=== PATIENT | male | born 1935 | race Caucasian/White ===

== ENCOUNTER 2017-05-31 16:04 | Inpatient (IN) | payer OTHER, MEDICARE ==
[~2017-05-31] VITALS: Ht 177.8 cm; Wt 65.3 kg
[~2017-05-31 16:04] MED LIST: AMPYRA10 M1 PO; ASPIRIN81 M4 PO; BACLOFEN10 M1 PO; BIOTIN2500 MCG PO; CELLCEPT200 MG/1 M PEG; CELLCEPT500 M2 PO; CIPRO500 M1 PO; DESMOPRESSIN A0.2 M1 PO; FLOMAX0.4 M1 PO; FLORASTOR250 M1 PO; FLUDROCORTISON0.1 M1 PO; MIDODRINE HCL2.5 M1 PO; NITROFURANTOIN100 M6 PO; NORTHERA100 M1 PO; PRAVASTATIN SOD10 M2 PO; VITAMIN B-121000 MC3 PO; VITAMIN D1000 UNIT PO
--- NOTE | 2017-05-31 16:43 | ED GI/GU/ABDOMINAL COMPLAINT ---
History of Present Illness General Chief Complaint: General Adult Stated Complaint: SIB MD PHILLIPS FOR ADMISSION ?INFECTION Source: patient, family Exam Limitations: no limitations Vital Signs & Intake/Output Vital Signs & Intake/Output Vital Signs Date Time Temp Pulse Resp B/P B/P Pulse O2 O2 Flow FiO2 Mean Ox Delivery Rate 05/31 1636 91 112/68 98 Room Air 05/31 1611 72/50 05/31 1608 97.4 73 15 63/33 96 Room Air Room Air Allergies Coded Allergies: No Known Allergies (05/31/17) Triage Note: PT SENT TO ED BY DR. WALTERS FOR UTI. PT HAS HAD INCREASED URINE FREQUENCY, +PSEUDOMONAS IN URINE WHEN TESTED THROUGH DR. WALTERS, DENIES ABD PAIN. +BURNING WITH URINATION. CURRENTLY ON CIPRO. Triage Nurses Notes Reviewed? yes Onset: Abrupt Duration: day(s): Timing: recent history Radiation: no radiation Activities at Onset: none No Modifying Factors: none HPI: 81-year-old male comes into the emergency room for further evaluation of persistent increased frequency and burning with urination. Patient was seen by his primary care doctor. Patient had a urine sent and a urine culture sent. Patient grew out resistant bacteria to ciprofloxacin and was sent in for IV antibiotics. He denies any fever chills vomiting. Denies any other symptoms associated symptoms. (Kiko Torres) Reconcile Medications Aspirin (Aspirin*) 81 MG TAB.CHEW 1 TAB PO DAILY HEART HEALTH (Reported) Baclofen 10 MG TABLET 1 TAB PO BID MUSCLE SPASMS (Reported) Biotin (Unknown Strength) CAPSULE 1 TAB PO DAILY SUPPLEMENT (Reported) Cholecalciferol (Vitamin D3) (Vitamin D) (Unknown Strength) TABLET 1 TAB PO DAILY SUPPLEMENT (Reported) Cyanocobalamin (Vitamin B-12) 1,000 MCG TABLET 1 TAB PO DAILY SUPPLEMENT ( Reported) Droxidopa (Northera) 100 MG CAPSULE 3 CAP PO TID BP (Reported) Finasteride 5 MG TABLET 1 TAB PO DAILY PROSTATE (Reported) Mycophenolate Mofetil (Cellcept) 200 MG/ML SUSP.RECON 5 ML PEG BID DEVIC'S DISEASE (Reported) Saccharomyces Boulardii (Florastor) 250 MG CAPSULE 1 CAP PO DAILY PROBIOTIC ( Reported) (Anselmo Ervin DO (TBS)) Past History Travel History Traveled to [place] past 21 day No Medical History Any Pertinent Medical History? see below for history Neurological: orthostatic hypotension DEVICS EENT: cataracts Cardiovascular: ORTHOSTATIC HYPOTENSION Respiratory: ASPIRATION PNA Gastrointestinal: peg tube Hepatic: NONE Renal: UTI'S Musculoskeletal: DEVICS DISEASE Psychiatric: NONE Endocrine: NONE Blood Disorders: NONE Cancer(s): SKIN CANCER NURSING SCHEDULER/Reproductive: NONE History of MRSA: No History of VRE: No History of CDIFF: No Influenza Vaccine: 02/19/16 Surgical History Surgical History: STATUS POST PEG CATARACT SX THROAT TUMOR REMOVED 2009 Psychosocial History Who do you live with Spouse Services at Home Nursing, Physical Therapy What is your primary language Persian Tobacco Use: Quit >30 days ago ETOH Use: denies use Illicit Drug Use: denies illicit drug use Family History Hx Contributory? No (Kiko Torres) Review of Systems Review of Systems Constitutional: Reports: no symptoms. EENTM: Reports: no symptoms. Respiratory: Reports: no symptoms. Cardiovascular: Reports: no symptoms. GI: Reports: no symptoms. Genitourinary: Reports: see HPI. Musculoskeletal: Reports: no symptoms. Skin: Reports: no symptoms. Neurological/Psychological: Reports: no symptoms. Hematologic/Endocrine: Reports: no symptoms. Immunologic/Allergic: Reports: no symptoms. All Other Systems: Reviewed and Negative (Kiko Torres) Physical Exam Physical Exam General Appearance: well developed/nourished, alert, awake Head: atraumatic Eyes: Bilateral: normal appearance. Ears, Nose, Throat, Mouth: hearing grossly normal, moist mucous membrane Neck: normal inspection Respiratory: normal breath sounds, no respiratory distress Cardiovascular: regular rate/rhythm Gastrointestinal: soft, non-tender Back: normal inspection Extremities: normal range of motion Neurologic/Psych: awake, alert, oriented x 3, normal gait Skin: intact, normal color Core Measures ACS in differential dx? No Sepsis Present: No Sepsis Focused Exam Completed? No (Kiko Torres) Progress Differential Diagnosis: ureterolithiasis, urinary retention, urethritis, UTI/ pyelo, SEPSIS Plan of Care: Orders Procedure Date/time Status Heart Healthy Diet 06/01 B Active CBC WITHOUT DIFFERENTIAL 06/01 0600 Active BASIC ELECTROLYTES PLUS BUN&CR 06/01 0600 Active LACTIC ACID 05/31 194 Active CULTURE,URINE 05/31 173 Active URINALYSIS 05/31 173 Active Pathway - chart 05/31 1737 Active House Staff 05/31 1737 Active Patient Data 05/31 1737 Active Code Status 05/31 1737 Active Patient Data 05/31 1709 Active ED Holding Orders 05/31 1708 Active Admit to inpatient 05/31 1708 Active Vital Signs 05/31 1708 Active Code Status 05/31 1708 Complete BLOOD CULTURE 05/31 1642 Active LACTIC ACID 05/31 1642 Active COMPREHENSIVE METABOLIC PANEL 05/31 1642 Active CBC WITHOUT DIFFERENTIAL 05/31 1642 Complete EKG 05/31 1642 Active Intake & Output 05/31 1640 Active VTE Mechanical Prophylaxis 05/31 UNK Active Vital Signs 05/31 UNK Active Intake & Output 05/31 UNK Active Current Medications Sig/Arnulfo Start time Last Medication Dose Stop Time Status Admin Enoxaparin Sodium 40 MG DAILY 06/01 1000 UNVr (Lovenox) Acetaminophen 650 MG Q6P PRN 05/31 174 UNVr (Tylenol) Acetaminophen 1,000 MG Q6P PRN 05/31 1745 UNVr (Ofirmev) Morphine Sulfate 2 MG Q4P PRN 05/31 1745 UNVr (Morphine) Laboratory Tests 05/31/17 1625: Sodium Pending, Potassium Pending, Chloride Pending, Carbon Dioxide Pending, Anion Gap Pending, BUN Pending, Creatinine Pending, BUN/Creatinine Ratio Pending , Glucose Pending, Lactic Acid Pending, Calcium Pending, Total Bilirubin Pending , AST Pending, ALT Pending, Alkaline Phosphatase Pending, Total Protein Pending, Albumin Pending, Globulin Pending, Albumin/Globulin Ratio Pending, CBC w Diff NO MAN DIFF REQ, RBC 4.17 L, MCV 92.7, MCH 30.8, RDW 14.5, MPV 7.5, Gran % 74.2, Lymphocytes % 11.0 L, Monocytes % 9.3, Eosinophils % 4.9, Basophils % 0.6, Absolute Granulocytes 6.4, Absolute Lymphocytes 0.9 L, Absolute Monocytes 0.8 H, Absolute Eosinophils 0.4, Absolute Basophils 0.1, PUBS MCHC 33.2 Microbiology 05/31 1737 URINE ROUT: Urine Culture - ORD 05/31 1705 BLOOD: Blood Culture - RECD 05/31 1641 BLOOD: Blood Culture - ORD Initial ED EKG: normal sinus rhythm, rate (96) (Kiko Torres) Departure Departure Disposition: STILL A PATIENT Condition: Stable Clinical Impression Primary Impression: UTI (urinary tract infection) Referrals: Karl Phillips MD (PCP/Family) Departure Forms: Customer Survey General Discharge Information Admission Note Spoke With: Ramonita Hayden MD Documentation of Exam: Documentation of any treatments & extenuating circumstances including Concerns Regarding Discharge (functional status, medication knowledge or non-compliance, living conditions, etc.) that warrant an admission rather than observation: Patient is symptomatic with urinary tract infection. Patient's culture grew out resistant bacteria to oral antibiotics. The only antibiotics that work against this particular bacteria are IV antibiotics. Therefore patient will require IV antibiotics to treat urine infection. Patient is medically not safe for discharge. Patient could potentially become septic if this goes untreated. (Kiko Torres) PA/SLIP COVER ESTIMATOR Co-Sign Statement Statement: ED Attending supervision documentation- [x] I saw and evaluated the patient. I have also reviewed all the pertinent lab results and diagnostic results. I agree with the findings and the plan of care as documented in the PA's/SLIP COVER ESTIMATOR's documentation. [] I have reviewed the ED Record and agree with the PA's/SLIP COVER ESTIMATOR's documentation. [] Additions or exceptions (if any) to the PAs/SLIP COVER ESTIMATOR's note and plan are summarized below: [] (Anselmo Ervin DO ([facility]))
[2017-05-31 16:59] LABS: ABSOLUTE BASOPHIL COUNT 0.1 /CUMM (0.0-0.2); ABSOLUTE EOSINOPHIL COUNT 0.4 /CUMM (0.0-0.7); ABSOLUTE GRANULOCYTE CT 6.4 /CUMM (1.4-6.5); ABSOLUTE LYMPH COUNT 0.9 /CUMM (1.2-3.4); ABSOLUTE MONOCYTE COUNT 0.8 /CUMM (0.10-0.60); BASOPHIL % 0.6 % (0.0-2.0); EOSINOPHIL % 4.9 % (0-5); GRANULOCYTE % 74.2 % (42.2-75.2); HEMATOCRIT 38.7 % (42-52); MEAN CORPUSCULAR HGB 30.8 PG (27.0-31.0); MEAN CORPUSCULAR HGB CONC 33.2 G/DL (33.0-37.0); MEAN CORPUSCULAR VOLUME 92.7 FL (80.0-94.0); MEAN PLATELET VOLUME 7.5 FL (7.4-10.4); PLATELET COUNT 435 /CUMM (130-400); RBC DISTRIBUTION WIDTH 14.5 % (11.5-14.5); RED BLOOD CELL CT 4.17 /CUMM (4.70-6.10); WHITE BLOOD CELL COUNT 8.6 /CUMM (4.8-10.8)
[2017-05-31] MEDS ORDERED: FINASTERIDE5 M1 PO (17:18)
--- NOTE | 2017-05-31 17:21 | History & Physical ---
Jacky Waddell 05/31/17 8710: General Information and HPI MD Statement: I have seen and personally examined ELIAS DE LUNA and documented this H&P. The patient is a 81 year old M who presented with a patient stated chief complaint of frequency of urination with burning micturition. []. 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 Patient reported that he was in his usual state of health 2 weeks back when he had nasal congestion and runny nose with dry cough. He went to primary care physician's office and he gave him symptomatic treatment for the common cold. Later on patient developed urinary frequency and burning sensation during urination. His primary care physician orders urine culture and prescribed him MicroBid that he took for 4 days but symptoms didn't relieve. Later on his primary care physician prescribed him ciprofloxacin that he took for 2 days but he still has burning sensation and frequency of urination and his urine culture came back positive with pseudomonas that's why his primary care physician sent him to ED for IV antibiotics to cover UTI. Patient denied any chest pain, short of breath, nausea, vomiting, chills, fever, palpitations, lightheadedness, abdominal pain, hematuria and diarrhea. Patient was admitted last time in February 2017 for a UTI at that time he was growing Pseudomonas in urine. He was treated at that time with IV ceftriaxone and switched to ciprofloxacin on discharge. Patient's blood pressure remains chronically on lower side and he is taking midodrine. ED course: Vitals: Temperature 97.4, pulse 73, respiratory rate 15, blood pressure 63/33, 72/50, 112/68, oxygen saturation 96% room air Labs: Duragesic count 8.6, hemoglobin 12.8, hematocrit 38.7, platelet count 435, sodium 139, potassium 4.5, BUN 17, creatinine 1.0, BUN/creatinine ratio 17.0, glucose 112, lactic acid 1.3, calcium 8.5, AST 21, ALT 33, albumin 3.5 Allergies/Medications Allergies: Coded Allergies: No Known Allergies (05/31/17) Past History Travel History Traveled to [place] past 21 day No Medical History Neurological: orthostatic hypotension DEVICS EENT: cataracts Cardiovascular: ORTHOSTATIC HYPOTENSION Respiratory: ASPIRATION PNA Gastrointestinal: peg tube Hepatic: NONE Renal: UTI'S Musculoskeletal: DEVICS DISEASE Psychiatric: NONE Endocrine: NONE Blood Disorders: NONE Cancer(s): SKIN CANCER SENIOR BI ARCHITECT/Reproductive: NONE History of MRSA: No History of VRE: No History of CDIFF: No Influenza Vaccine: 02/19/16 Surgical History Surgical History: STATUS POST PEG CATARACT SX THROAT TUMOR REMOVED 2010 Past Family/Social History Psychosocial History Services at Home: Nursing, Physical Therapy ETOH Use: denies use Illicit Drug Use: denies illicit drug use Review of Systems Review of Systems Constitutional: Reports: no symptoms. EENTM: Reports: no symptoms. Cardiovascular: Reports: no symptoms. Respiratory: Reports: no symptoms. GI: Reports: no symptoms. Genitourinary: Reports: frequency, pain. Musculoskeletal: Reports: no symptoms. Neurological/Psychological: Reports: no symptoms. Exam & Diagnostic Data Last 24 Hrs of Vital Signs/I&O Vital Signs Date Time Temp Pulse Resp B/P B/P Pulse O2 O2 Flow FiO2 Mean Ox Delivery Rate 05/31 1841 97.6 106 20 116/50 95 Room Air 05/31 1636 91 112/68 98 Room Air 05/31 1611 72/50 05/31 1608 97.4 73 15 63/33 96 Room Air Room Air Physical Exam General Appearance Alert, Oriented X3, Cooperative, No Acute Distress Skin Temp/Moisture Exam: Warm/Dry Sepsis Skin Exam (color): Normal for Ethnicity HEENT Atraumatic, PERRLA, EOMI Neck Supple Cardiovascular Normal S1, Normal S2 Lungs Clear to Auscultation Abdomen Soft, No Tenderness Neurological Normal Speech, Strength at 5/5 X4 Ext, Normal Tone, Sensation Intact Extremities No Edema Last 24 Hrs of Labs/Fernando: Laboratory Tests 05/31/17 1625: Anion Gap 13, Estimated GFR > 60, BUN/Creatinine Ratio 17.0, Glucose 112 H, Lactic Acid 1.3, Calcium 8.5, Total Bilirubin 0.3, AST 21, ALT 33, Alkaline Phosphatase 70, Total Protein 6.4, Albumin 3.5, Globulin 2.9, Albumin/Globulin Ratio 1.2, CBC w Diff NO MAN DIFF REQ, RBC 4.17 L, MCV 92.7, MCH 30.8, RDW 14.5 , MPV 7.5, Gran % 74.2, Lymphocytes % 11.0 L, Monocytes % 9.3, Eosinophils % 4.9, Basophils % 0.6, Absolute Granulocytes 6.4, Absolute Lymphocytes 0.9 L, Absolute Monocytes 0.8 H, Absolute Eosinophils 0.4, Absolute Basophils 0.1, PUBS MCHC 33.2 Microbiology 05/31 1738 URINE ROUT: Urine Culture - COLB 05/31 171 BLOOD: Blood Culture - RECD 05/31 170 BLOOD: Blood Culture - RECD Assessment/Plan Assessment: 81 YO F with PMH of Devic's disease, aspiration pneumonia, orthostatic hypotension, recurrent UTI, 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 We will admit the patient on general medicine floor to give him IV antibiotics for UTI. Recurrent UTI: -Patient was admitted last time in February 2017 when he was growing Pseudomonas in urine and was treated with IV ceftriaxone and was discharged on ciprofloxacin. -Patient again came in with UTI and he is growing Pseudomonas and urine and he took outpatient antibiotic treatment. -IV ceftaz -We'll follow the urine and blood cultures. -We will follow CBCs for WBC count. -We will check his HbA1c level. 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 -We will continue droxidopa. Chronically low blood pressure: -We will continue his midodrine. -We will watch for his blood pressure. DVT prophylaxis: Mechanical and Lovenox CODE STATUS: Full code As Ranked By This Provider Problem List: 1. UTI (urinary tract infection) Core Measures/Misc (02/04) Acute Coronary Syndrome ACS Diagnosis: No Congestive Heart Failure Congestive Heart Failure Diagnosis No Cerebrovascular Accident CVA/TIA Diagnosis: No VTE (View Protocol) VTE Risk Factors Age>40 No Mechanical VTE Prophylaxis d/t N/A MechProphylax Ordered No VTE Pharm Prophylaxis d/t NA PharmProphylax ordered Sepsis (View protocol) Sepsis Present: No Myke HOLLINGSWORTH,Cornelius 05/31/17 1291: Resident Review Statement Resident Statement: examined this patient, discussed with commercial intern, agreed with commercial intern Other Findings: This is a 81 year old male with PMH of Devics disease, sq. cancer of neck, PEG tube placement for frequent aspiration, orthostatic hypotension, UTIs who was sent in by Dr. Bell for UTI. Pt states that he was having frequency and burning upon urination for about 1.5-2wks. Prior to UTI symptoms he states that he had congested nose, and productive cough. As such, he went to PCP office on Sunday for evaluation of URI symptoms. On evaluation he mentioned his UTI symptoms and PCP ordered a UA/UC on Sunday. Since then he has been taking Macrobid (3-4 days) and Cipro (2 days). Today, PCP called to tell him that sensitivity of pathogen was only to IV abx and go to hospital. He grew out pseudomonas S to Ceftaz and Meropenem. He has had previous admissions to for UTI. He does see a urologist for eval of frequent UTI. Denies any fevers, nausea, vomiting, diarrhea, CP, SOB, abd pain, suprapubic pain, hematuria, hematochezia or melena. He does endorse frequency and burning upon urination. General Appearance Alert, Oriented X3, Cooperative, No Acute Distress HEENT Atraumatic, PERRLA, EOMI Neck Supple Cardiovascular Normal S1, Normal S2, no murmurs or extra heart sounds Lungs CTAB Abdomen Soft, No Tenderness, PEG tube in place. site well healed. Neurological Normal Speech, Strength at 5/5 X4 Ext, Normal Tone, Sensation Intact Extremities No Edema Assessment: his is a 81 year old male with PMH of Devics disease, sq. cancer of neck, throat tumor, PEG tube placement for aspiration, orthostatic hypotension, UTIs who was sent in by Dr. Bell for UTI. Though pt is afebrile without leukocytosis we will treat him as he is symptomatic, already been treated with antibiotics and has previous hx of UTIs. PLAN: UTI: Though pt has BP with 62 systolic on autocuff the manual read is higher. Additionally, pt states he becomes hypotensive without his fludrocortisone and Northera. Do not suspect sepsis 2/2 UTI at this time. * IV ceftaz * UA * UC Devics: Con't routine management * Baclofen, * Droxidopa * Fluodricortisone CAD: * Con't ASA FC Chem ppx Regular diet with thickened liquid Yovanny HOLLINGSWORTH, Sitalaksh 05/31/17 2321: General Information and HPI Allergies/Medications Home Med list Aspirin (Aspirin*) 81 MG TAB.CHEW 1 TAB PO DAILY HEART HEALTH (Reported) Baclofen 10 MG TABLET 1 TAB PO BID MUSCLE SPASMS (Reported) Biotin (Unknown Strength) CAPSULE 1 TAB PO DAILY SUPPLEMENT (Reported) Cholecalciferol (Vitamin D3) (Vitamin D) (Unknown Strength) TABLET 1 TAB PO DAILY SUPPLEMENT (Reported) Cyanocobalamin (Vitamin B-12) 1,000 MCG TABLET 1 TAB PO DAILY SUPPLEMENT ( Reported) Droxidopa (Northera) 100 MG CAPSULE 3 CAP PO TID BP (Reported) Finasteride 5 MG TABLET 1 TAB PO DAILY PROSTATE (Reported) Fludrocortisone Acetate 0.1 MG TABLET 1 TAB PO DAILY adrenal insufficiency ( Reported) Mycophenolate Mofetil (Cellcept) 200 MG/ML SUSP.RECON 5 ML PEG BID DEVIC'S DISEASE (Reported) Saccharomyces Boulardii (Florastor) 250 MG CAPSULE 1 CAP PO DAILY PROBIOTIC ( Reported) Attending MD Review Statement Attending Statement Attending MD Statement: examined this patient, discuss w/resident/PA/INTERNET AND E BUSINESS PROJECT MANAGER, agreed w/resident/PA/INTERNET AND E BUSINESS PROJECT MANAGER, reviewed images, amended to note Attending Assessment/Plan: 81 yo M with h/o CAD s/p stent (1999), paroxysmal Afib not on AC, DEVIC's disease (NMO), immunosuppresed on Cellcept, 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 Bell for management of drug resistant UTI. Patient reports a 2-week h/o urinary frequency, dysuria and intermittent stream. Patient self-medicated with macrobid that he had left over from his previous UTI , however symptoms did not improve. So he saw his PCP last week, who then prescribed him Cipro for UTI. Patient took it for 2 days. Today his urine culture was reported as Pseudomonas but resistant to Cipro, hence PCP asked him to come to ER for IV antibiotics. Patient follows up with Urologist Dr. Dominick Hamilton who patient saw for c/o urgency and was prescribed finasteride which patient has been taking for past 1- 2 months. Patient denies h/o BPH or previous cystoscopy. Patient is scheduled to follow up with Urologist next month. Vitals: initial BP on ER arrival is noted 63/33 (auto-cuff) but repeat on manual was 72/50 --> improved to 112/68, otherwise stable vitals. Labs: no leukocytosis or bandemia, lactic acid 1.3. UA cloudy, nitrite positive, large leukocyte esterase, WBC> 75, many bacteria. Urine culture (May 28): Pseudomonas resistant to Cipro, sensitive to Ceftaz and imipenem. EKG: SR. Assessment and plan: 1. Pseudomonas UTI with resistance to Cipro 2. Failed outpatient therapy 3. 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 Dysphagia on regular diet with thickened liquids, PEG in situ - Admit to general medicine - Panculture - IV Ceftaz 1 gm Q8 - Consider ID consult to help with antibiotic choice upon discharge - Gentle IV hydration - Outpatient Urology follow up (Dr. Hamilton) - Diet regular with thickened liquids - Continue Cellcept via PEG tube BID with 62 oz water (patient is on a liquid formulation at home, our pharmacy carries the tablet formulation). - Continue fludrocortisone and northera, if hypotensive consider stress dose steroids. - Continue finasteride, aspirin and baclofen. DVT ppx Lovenox. Full code.
[2017-05-31 18:41] VITALS: BP 116/50
[2017-05-31 22:24] VITALS: BP 122/50
[2017-06-01] MEDS ORDERED: FLUDROCORTISON0.1 M1 PO (00:43)
--- NOTE | 2017-06-01 04:03 | Admission Certification ---
Admission Certification Certification Statement - As attending physician, I certify that at the time of - admission, based on clinical presentation, severity of - symptoms, need for further diagnostic testing and - therapeutic interventions, and risk of adverse outcomes - without in-hospital treatment, in my clinical assessment, - this patient requires an acute hospital stay for a minimum - of two nights or longer. I have also considered psychsocial - factors such as support system, advanced age, financial - issues, cognitive issues, and failed out-patient treatments, - past re-admission history, safety of patient, and lack of - compliance as applicable. Specific rationale supporting this admission is: Pseudomonas UTI.
[2017-06-01 06:16] VITALS: BP 140/80
--- NOTE | 2017-06-01 06:52 | PN- Housestaff ---
BaironShannon 06/01/17 0651: Subjective Follow-up For: UTI due to Pseudomonas infection. Subjective: No overnight events. Patient remained afebrile overnight. Seen and examined this morning. He denied any chest pain, short of breath, nausea, vomiting, abdominal pain, chills, fever and lightheadedness. He reported that his burning micturition and frequency has improved and he is close to his baseline. Review of Systems Constitutional: Reports: no symptoms. EENTM: Reports: no symptoms. Cardiovascular: Reports: no symptoms. Respiratory: Reports: no symptoms. Gastrointestinal: Reports: no symptoms. Genitourinary: Reports: frequency, pain. Musculoskeletal: Reports: no symptoms. Neurological/Psychological: Reports: no symptoms. Objective Last 24 Hrs of Vital Signs/I&O Vital Signs Date Time Temp Pulse Resp B/P B/P Pulse O2 O2 Flow FiO2 Mean Ox Delivery Rate 06/01 0616 97.5 87 20 140/80 96 Room Air 06/01 0000 Room Air 05/31 2224 97.9 90 20 122/50 95 Room Air 05/31 1841 97.6 106 20 116/50 95 Room Air 05/31 1636 91 112/68 98 Room Air 05/31 1611 72/50 05/31 1608 97.4 73 15 63/33 96 Room Air Room Air Intake & Output 06/01 1600 06/01 0800 06/01 0000 Intake Total 440 0 Output Total 600 350 Balance -160 -350 Intake, IV 200 Intake, Oral 240 0 Output, Urine 600 350 Patient 144 lb Weight Weight Reported by Patient Measurement Method Physical Exam General Appearance: Alert, Oriented X3, Cooperative, No Acute Distress Skin Temp/Moisture Exam: Warm/Dry HEENT: Atraumatic, PERRLA, EOMI Neck: Supple Cardiovascular: Normal S1, Normal S2 Lungs: Clear to Auscultation Abdomen: Soft, No Tenderness Neurological: Normal Speech, Strength at 5/5 X4 Ext, Normal Tone, Sensation Intact Extremities: No Edema Assessment/Plan Assessment: 81 YO F with PMH of Devic's disease, aspiration pneumonia, orthostatic hypotension, recurrent UTI, 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 We will admit the patient on general medicine floor to give him IV antibiotics for UTI. UTI: -Patient was admitted last time in February 2017 when he was growing Pseudomonas in urine and was treated with IV ceftriaxone and was discharged on ciprofloxacin. -Patient again came in with UTI and he is growing Pseudomonas and urine and he took outpatient antibiotic treatment. -IV ceftaz -We'll follow the urine and blood cultures. -We will follow the ID recommendations and maybe we're able to send patient home today after getting PICC line for IV antibiotic. 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 -We will continue droxidopa. Chronically low blood pressure: -We will continue his midodrine. -We will watch for his blood pressure. DVT prophylaxis: Mechanical and Lovenox CODE STATUS: Full code Problem List: 1. 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 Patient reports urinary frequency and some discomfort. He denies systemic symptoms and does not appear septic. AFVSS. WBC 10. Started on Ceftazidime overnight. 1. UTI secondary to resistent Pseudomonas 2. DEVIC 3. Chronic aspiration s/p PEG Plan - Continue on general medicine - ID consult - Will possibly pursue PICC and 7 days of Ceftazidime as an outpatient - Continue home medications including Finasteride - No Flomax as it may cause hypotension - DVT PPx
[2017-06-01 09:35] LABS: ABSOLUTE BASOPHIL COUNT 0 /CUMM (0.0-0.2); ABSOLUTE EOSINOPHIL COUNT 0.5 /CUMM (0.0-0.7); ABSOLUTE LYMPH COUNT 0.7 /CUMM (1.2-3.4); BASOPHIL % 0.4 % (0.0-2.0); GRANULOCYTE % 78.1 % (42.2-75.2); HEMATOCRIT 35.1 % (42-52); MEAN CORPUSCULAR HGB 30.8 PG (27.0-31.0); MEAN CORPUSCULAR HGB CONC 33.2 G/DL (33.0-37.0); MEAN CORPUSCULAR VOLUME 92.6 FL (80.0-94.0); MEAN PLATELET VOLUME 7.9 FL (7.4-10.4); PLATELET COUNT 413 /CUMM (130-400); RBC DISTRIBUTION WIDTH 14.1 % (11.5-14.5); RED BLOOD CELL CT 3.79 /CUMM (4.70-6.10); WHITE BLOOD CELL COUNT 10.3 /CUMM (4.8-10.8)
--- NOTE | 2017-06-01 11:59 | Patient Discharge Instructions ---
Discharge Instructions General Discharge Information You were seen/treated for: UTI due to pseudomonas infection Watch for these problems: Burning micturation, frequency of urination, lower abdominal pain, chills, fever , nausea, pyuria, blood in urine or urinary retention. -If you experience any of these symptoms please come to ED or call to your primary care physician. Special Instructions: Follow-up with your primary care physician in one week. Follow the speech therapist as outpatient. Follow the urology as outpatient. Diet Recommended Diet: Heart Healthy, Nector thick liquids Activity Activity Self Limited: Yes Acute Coronary Syndrome Inclusion Criteria At DC or during hospital stay patient has or had the following: ACS DIAGNOSIS No Discharge Core Measures Meds if any: Prescribed or Continued at Discharge Meds if any: NOT Prescribed or Continued at Discharge Congestive Heart Failure Inclusion Criteria At DC or during hospital stay patient has or had the following: CHF DIAGNOSIS No Discharge Core Measures Meds if any: Prescribed or Continued at Discharge Meds if any: NOT Prescribed or Continued at Discharge Cerebrovascular accident Inclusion Criteria At DC or during hospital stay patient has or had the following: CVA/TIA Diagnosis No Discharge Core Measures Meds if any: Prescribed or Continued at Discharge Meds if any: NOT Prescribed or Continued at Discharge Venous thromboembolism Inclusion Criteria VTE Diagnosis No VTE Type NONE VTE Confirmed by (Test) NONE Discharge Core Measures - Per Current guidelines, there needs to be overlap - treatment for the first 5 days of Warfarin therapy. - If discharged on Warfarin prior to 5 days of - overlap therapy, the patient will need to be - assessed for post discharge needs including - *Post discharge parental anticoagulation - *Warfarin and/or parental anticoagulation education - *Follow up date to check INR post discharge At least 5 days overlap therapy as Inpatient No Meds if any: Prescribed or Continued at Discharge Note: Overlap Therapy is Warfarin and Anticoagulant Meds if any: NOT Prescribed or Continued at Discharge
[2017-06-01 13:54] VITALS: BP 116/80
--- NOTE | 2017-06-01 15:13 | Cons- Infect Disease ---
General Information and HPI Consulting Request Date of Consult: 06/01/17 Requested By: Basilio Lambert MD Reason for Consult: Pseudomonas urinary tract infection Source of Information: patient, family, old records History of Present Illness: This is an 81-year-old man with a history of Devic's disease, maintained on CellCept, paroxysmal atrial fibrillation, not on anticoagulation, orthostatic hypotension, maintained on Northera and Florinef, squamous cell cancer of the neck, status post surgery and radiation, with resultant dysphasia and aspiration pneumonia, requiring a PEG, recurrent urinary tract infections and urinary frequency, particularly over the past year, hospitalized 3 months prior to admission with a pseudomonas urinary tract infection, found to be afebrile with a leukocytosis on admission and discharged on Ciprofloxacin to complete a 10 day course, begun one month prior to admission on Proscar by a new urologist, with the development of URI symptoms several weeks prior to admission, admitted on May 31 with several days of dysuria and increased urinary frequency not responsive to Ciprofloxacin, begun 2 days prior to admission, with a urine culture sent 3 days prior to admission positive for Pseudomonas resistant to Ciprofloxacin. On admission he was afebrile. Laboratory data revealed a white blood cell count of 9000, BUN/creatinine 17 and 1.0, with normal liver enzymes. Urinalysis 1-3 RBCs/greater than 75 WBCs. He was begun on Ceftazidime and has remained afebrile since admission. He notes improvement in his dysuria and offers no complaints at this time. Allergies/Medications Allergies: Coded Allergies: No Known Allergies (05/31/17) Home Med List: Aspirin (Aspirin*) 81 MG TAB.CHEW 1 TAB PO DAILY HEART HEALTH (Reported) Baclofen 10 MG TABLET 1 TAB PO BID MUSCLE SPASMS (Reported) Biotin (Unknown Strength) CAPSULE 1 TAB PO DAILY SUPPLEMENT (Reported) Cholecalciferol (Vitamin D3) (Vitamin D) (Unknown Strength) TABLET 1 TAB PO DAILY SUPPLEMENT (Reported) Cyanocobalamin (Vitamin B-12) 1,000 MCG TABLET 1 TAB PO DAILY SUPPLEMENT ( Reported) Droxidopa (Northera) 100 MG CAPSULE 3 CAP PO TID BP (Reported) Finasteride 5 MG TABLET 1 TAB PO DAILY PROSTATE (Reported) Fludrocortisone Acetate 0.1 MG TABLET 1 TAB PO DAILY adrenal insufficiency ( Reported) Mycophenolate Mofetil (Cellcept) 200 MG/ML SUSP.RECON 5 ML PEG BID DEVIC'S DISEASE (Reported) Saccharomyces Boulardii (Florastor) 250 MG CAPSULE 1 CAP PO DAILY PROBIOTIC ( Reported) Past History Travel History Traveled to [place] past 21 day No Medical History Blood Transfusion Hx: No Neurological: DEVIC'S DISEASE Cardiovascular: ORTHOSTATIC HYPOTENSION Respiratory: ASPIRATION PNA Gastrointestinal: peg tube Hepatic: NONE Renal: UTI'S Psychiatric: NONE Endocrine: NONE Blood Disorders: NONE Cancer(s): SKIN CANCER [employer] WORKER/Reproductive: NONE History of MRSA: No History of VRE: No History of CDIFF: No Isolation History: Standard Influenza Vaccine: 02/19/16 Surgical History Surgical History: STATUS POST PEG CATARACT SX THROAT TUMOR REMOVED 2009 Psychosocial History Where Do You Live? Home Services at Home: Nursing, Physical Therapy Smoking Status: Former Smoker ETOH Use: denies use Illicit Drug Use: denies illicit drug use Review of Systems Review of Systems All Other Systems: Reviewed and Negative Exam & Diagnostic Data Last 24 Hrs of Vital Signs/I&O Vital Signs Date Time Temp Pulse Resp B/P B/P Pulse O2 O2 Flow FiO2 Mean Ox Delivery Rate 06/01 1354 97.6 100 18 116/80 94 Room Air 06/01 0616 97.5 87 20 140/80 96 Room Air 06/01 0000 Room Air 05/31 2224 97.9 90 20 122/50 95 Room Air 05/31 1841 97.6 106 20 116/50 95 Room Air 05/31 1636 91 112/68 98 Room Air 05/31 1611 72/50 05/31 1608 97.4 73 15 63/33 96 Room Air Room Air Intake & Output 06/01 1600 06/01 0800 06/01 0000 Intake Total 1600 440 0 Output Total 1100 600 350 Balance 500 -160 -350 Intake, IV 800 200 Intake, Oral 800 240 0 Output, Urine 1100 600 350 Patient 144 lb Weight Weight Reported by Patient Measurement Method Physical Exam Other Physical Findings: Afebrile. He is awake and alert in no acute distress. Skin reveals no rash. HEENT negative. Neck is supple with no adenopathy. Lungs bibasilar rhonchi. Heart regular rhythm with no murmur. Abdomen is soft, nontender with positive bowel sounds; PEG in place with no inflammation at the site. Back no CVA tenderness. Extremities no cyanosis, clubbing or edema. Neuro occasional myoclonic jerks; some imbalance with no obvious focality. Last 24 Hours of Lab Results: Laboratory Tests 06/01 Chemistry Sodium (137 - 145 mmol/L) 138 Potassium (3.5 - 5.1 mmol/L) 4.3 Chloride (98 - 107 mmol/L) 100 Carbon Dioxide (22 - 30 mmol/L) 26 Anion Gap (5 - 16) 12 BUN (9 - 20 mg/dL) 14 Creatinine (0.7 - 1.2 mg/dL) 0.7 Estimated GFR (>60 ml/min) > 60 BUN/Creatinine Ratio (7 - 25 %) 20.0 Hematology CBC w Diff NO MAN DIFF REQ WBC (4.8 - 10.8 /CUMM) 10.3 RBC (4.70 - 6.10 /CUMM) 3.79 L Hgb (14.0 - 18.0 G/DL) 11.7 L Hct (42 - 52 %) 35.1 L MCV (80.0 - 94.0 FL) 92.6 MCH (27.0 - 31.0 PG) 30.8 RDW (11.5 - 14.5 %) 14.1 Plt Count (130 - 400 /CUMM) 413 H MPV (7.4 - 10.4 FL) 7.9 Gran % (42.2 - 75.2 %) 78.1 H Lymphocytes % (20.5 - 51.1 %) 7.2 L Monocytes % (1.7 - 9.3 %) 9.3 Eosinophils % (0 - 5 %) 5.0 Basophils % (0.0 - 2.0 %) 0.4 Absolute Granulocytes (1.4 - 6.5 /CUMM) 8.0 H Absolute Lymphocytes (1.2 - 3.4 /CUMM) 0.7 L Absolute Monocytes (0.10 - 0.60 /CUMM) 1.0 H Absolute Eosinophils (0.0 - 0.7 /CUMM) 0.5 Absolute Basophils (0.0 - 0.2 /CUMM) 0 PUBS MCHC (33.0 - 37.0 G/DL) 33.2 Urines Urinalysis LIGHT H Urine Color (YEL,AMB,STR) YEL Urine Clarity (CLEAR) CLDY H Urine pH (5.0 - 8.0) 7.0 Ur Specific [place] (1.001 - 1.035) 1.015 Urine Protein (NEG,<30 MG/DL) NEG Urine Ketones (NEG) NEG Urine Nitrite (NEG) POS H Urine Bilirubin (NEG) NEG Urine Urobilinogen (0.1 - 1.0 EU/dl) 0.2 Ur Leukocyte Esterase (NEG) LARGE H Ur Microscopic SEDIMENT EXAMINED Urine RBC (0 - 5 /HPF) 1-3 Urine WBC (0 - 2 /HPF) > 75 H Ur Epithelial Cells (NONE,FEW) FEW Urine Bacteria (NEG/NONE) MANY H Urine Mucus (FEW,NONE) FEW Urine Hemoglobin (NEG) TRACE-INTACT H Urine Glucose (N MG/DL) NEG 05/31 1625 Chemistry Sodium (137 - 145 mmol/L) 139 Potassium (3.5 - 5.1 mmol/L) 4.5 Chloride (98 - 107 mmol/L) 97 L Carbon Dioxide (22 - 30 mmol/L) 29 Anion Gap (5 - 16) 13 BUN (9 - 20 mg/dL) 17 Creatinine (0.7 - 1.2 mg/dL) 1.0 Estimated GFR (>60 ml/min) > 60 BUN/Creatinine Ratio (7 - 25 %) 17.0 Glucose (65 - 99 mg/dL) 112 H Lactic Acid (0.7 - 2.1 mmol/L) 1.8 1.3 Calcium (8.4 - 10.2 mg/dL) 8.5 Total Bilirubin (0.2 - 1.3 mg/dL) 0.3 AST (17 - 59 U/L) 21 ALT (21 - 72 U/L) 33 Alkaline Phosphatase (< 127 U/L) 70 Total Protein (6.3 - 8.2 g/dL) 6.4 Albumin (3.5 - 5.0 g/dL) 3.5 Globulin (1.9 - 4.2 gm/dL) 2.9 Albumin/Globulin Ratio (1.1 - 2.2 %) 1.2 Hematology CBC w Diff NO MAN DIFF REQ WBC (4.8 - 10.8 /CUMM) 8.6 RBC (4.70 - 6.10 /CUMM) 4.17 L Hgb (14.0 - 18.0 G/DL) 12.8 L Hct (42 - 52 %) 38.7 L MCV (80.0 - 94.0 FL) 92.7 MCH (27.0 - 31.0 PG) 30.8 RDW (11.5 - 14.5 %) 14.5 Plt Count (130 - 400 /CUMM) 435 H MPV (7.4 - 10.4 FL) 7.5 Gran % (42.2 - 75.2 %) 74.2 Lymphocytes % (20.5 - 51.1 %) 11.0 L Monocytes % (1.7 - 9.3 %) 9.3 Eosinophils % (0 - 5 %) 4.9 Basophils % (0.0 - 2.0 %) 0.6 Absolute Granulocytes (1.4 - 6.5 /CUMM) 6.4 Absolute Lymphocytes (1.2 - 3.4 /CUMM) 0.9 L Absolute Monocytes (0.10 - 0.60 /CUMM) 0.8 H Absolute Eosinophils (0.0 - 0.7 /CUMM) 0.4 Absolute Basophils (0.0 - 0.2 /CUMM) 0.1 PUBS MCHC (33.0 - 37.0 G/DL) 33.2 Last 24 Hours of Fernando Results: Blood cultures 2 May 31 negative Urine culture May 31 negative Urine culture May 28 100,000 colonies of Pseudomonas resistant to Ciprofloxacin Assessment/Plan Assessment/Plan Impression: This is an 81-year-old man with a history of Devic's disease, maintained on CellCept, paroxysmal atrial fibrillation, orthostatic hypotension, squamous cell cancer of the neck, status post surgery and radiation, and recurrent urinary tract infections, hospitalized 3 months prior to admission with a pseudomonas urinary tract infection, treated with a 10 day course of Ciprofloxacin, begun on Proscar one month prior to admission, admitted on May 31 with several days of dysuria and increased urinary frequency, persisting on Ciprofloxacin, which was begun 2 days prior to admission, with a urine culture sent 3 days prior to admission positive for Pseudomonas resistant to Ciprofloxacin. His clinical presentation is consistent with a lower urinary tract infection, with urinary symptoms and the absence of any fever or leukocytosis. Unfortunately his urine culture is resistant to Ciprofloxacin and though, his urine culture is so far negative, suggesting a possible microbiologic response to Ciprofloxacin, he did not respond clinically; therefore he will require at least a one-week course of Ceftazidime for a lower urinary tract infection. Suggestion: 1. CT of the abdomen and pelvis 2. Urology follow-up (can be as an outpatient with his urologist unless the CT scan reveals findings that require more urgent attention) 3. Would proceed with placement of a PICC if he is able to be discharged over the weekend; otherwise would continue with a peripheral IV 4. Continue Ceftazidime to complete a 7 day course of treatment Consult Acknowledgment - Thank you for your consult request.
[2017-06-01 22:16] VITALS: BP 118/80
--- NOTE | 2017-06-01 23:02 | CT SCAN REPORT ---
EXAMINATION: CT ABDOMEN AND PELVIS WITHOUT CONTRAST CLINICAL INFORMATION: Renal stones. Obstructive uropathy. COMPARISON: 04/19/2016 TECHNIQUE: Multidetector volumetric imaging was performed from the superior aspect of the liver through the pubic symphysis. Sagittal and coronal reformatted images were obtained on the technologist's workstation. DLP: 253 mGy-cm FINDINGS: LUNG BASES: There is left basilar consolidation and groundglass opacity. Medial right basilar focal opacity also noted. The heart is prominent. LIVER, GALLBLADDER, AND BILIARY TREE: The liver is normal in size, shape, and attenuation. No focal hepatic lesion or biliary ductal dilatation is present. Cholelithiasis. No gallbladder wall thickening or pericholecystic fluid. PANCREAS: Unremarkable. SPLEEN: Unremarkable. ADRENAL GLANDS: Unremarkable. KIDNEYS AND URETERS: The kidneys are normal in size, shape, and attenuation. No hydronephrosis, hydroureter, or calculi seen. No perinephric stranding. Left midpole renal cyst. BLADDER: The bladder is distended with mild irregular wall thickening. Trabeculations of the bladder wall with small diverticula. This is similar to previous. GASTROINTESTINAL TRACT: Small hiatal hernia. Gastrostomy tube in place. The small bowel is normal in caliber without obstruction. No colonic wall thickening or inflammatory changes. Minimal colonic diverticulosis without diverticulitis. No free air or free fluid. ABDOMINAL WALL: No significant hernia is appreciated. LYMPH NODES: Normal. VASCULAR: Somewhat ectatic infrarenal abdominal aorta, measuring 2.5 cm in AP dimension. Diffuse atherosclerotic calcifications. PELVIC VISCERA: Unremarkable. OSSEOUS STRUCTURES: No acute or suspicious osseous abnormality. Degenerative changes throughout the spine. Degenerative changes of the hips. IMPRESSION: No hydronephrosis or nephrolithiasis. Left renal cyst. Trabeculations of the bladder wall with bladder wall diverticula, suggestive of outlet obstruction. Cholelithiasis. Consolidation at both lung bases. This appearance is nonspecific. Consider multifocal pneumonia and aspiration. Atelectasis is possible.
[2017-06-02 06:20] VITALS: BP 122/74
--- NOTE | 2017-06-02 09:08 | PN- Housestaff ---
[place] HOLLINGSWORTH,Teresa 06/02/17 0908: Subjective Follow-up For: UTI due to Pseudomonas infection. Subjective: No overnight events. Patient remained afebrile overnight. Seen and examined this morning. He denied any chest pain, short of breath, nausea, vomiting, abdominal pain, chills, fever and lightheadedness. He reported that his burning micturition and frequency has improved and he is close to his baseline. Review of Systems Constitutional: Denies: no symptoms. Objective Last 24 Hrs of Vital Signs/I&O Vital Signs Date Time Temp Pulse Resp B/P B/P Pulse O2 O2 Flow FiO2 Mean Ox Delivery Rate 06/02 1440 98.0 75 20 120/60 96 06/02 0620 98.5 88 18 122/74 97 Room Air 06/01 2216 98.1 92 19 118/80 98 Room Air Intake & Output 06/02 1600 06/02 0800 06/02 0000 Intake Total 1360 200 200 Output Total 350 650 Balance 1360 -150 -450 Intake, Oral 1360 200 200 Number 0 Bowel Movements Output, Urine 350 650 Patient 144 lb Weight Physical Exam General Appearance: Alert, Oriented X3, Cooperative, No Acute Distress Skin: No Rashes, No Breakdown, No Significant Lesion Neck: Supple, No JVD Cardiovascular: Normal S1, Normal S2, No Murmurs Lungs: Clear to Auscultation, Normal Air Movement Abdomen: Normal Bowel Sounds, Soft, No Tenderness Neurological: Normal Speech Extremities: No Clubbing, No Cyanosis, No Edema Assessment/Plan Assessment: 81 YO F with PMH of Devic's disease, aspiration pneumonia, orthostatic hypotension, recurrent UTI, 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 We will admit the patient on general medicine floor to give him IV antibiotics for UTI. UTI: -Patient was admitted last time in February 2017 when he was growing Pseudomonas in urine and was treated with IV ceftriaxone and was discharged on ciprofloxacin. -Patient again came in with UTI and he is growing Pseudomonas and urine and he took outpatient antibiotic treatment. -Continue IV ceftaz for a total of 7 days -We'll follow the urine and blood cultures. -Currently the patient states that he refuses to get PICC line and would prefer to stay until Sunday for his antibiotics Devics disease: -Patient has a variant of demyelinating disorder and he is taking immunosuppressive medication including mycophenolate we will continue it. -We will continue droxidopa. Chronically low blood pressure: -We will continue his midodrine. -We will watch for his blood pressure. DVT prophylaxis: Mechanical and Lovenox CODE STATUS: Full code Problem List: 1. 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 Patient reports urinary frequency and some discomfort. He denies systemic symptoms and does not appear septic. AFVSS. WBC 10. Started on Ceftazidime overnight. CT abdomen shows thickened bladder with outflow obstruction. 1. UTI secondary to resistent Pseudomonas 2. DEVIC 3. Chronic aspiration s/p PEG Plan - Continue on general medicine - ID consult - Will possibly pursue PICC and 7 days of Ceftazidime as an outpatient - Continue home medications including Finasteride - No Flomax as it may cause hypotension - DVT PPx - Outpatient urology follow up
[2017-06-02 09:49] LABS: ABSOLUTE BASOPHIL COUNT 0 /CUMM (0.0-0.2); ABSOLUTE EOSINOPHIL COUNT 0.5 /CUMM (0.0-0.7); ABSOLUTE GRANULOCYTE CT 7.6 /CUMM (1.4-6.5); ABSOLUTE LYMPH COUNT 0.8 /CUMM (1.2-3.4); ABSOLUTE MONOCYTE COUNT 1.1 /CUMM (0.10-0.60); BASOPHIL % 0.4 % (0.0-2.0); EOSINOPHIL % 5.4 % (0-5); GRANULOCYTE % 74.8 % (42.2-75.2); HEMATOCRIT 36.6 % (42-52); MEAN CORPUSCULAR HGB CONC 33.4 G/DL (33.0-37.0); MEAN CORPUSCULAR VOLUME 92.8 FL (80.0-94.0); MEAN PLATELET VOLUME 8.1 FL (7.4-10.4); PLATELET COUNT 422 /CUMM (130-400); RBC DISTRIBUTION WIDTH 14.1 % (11.5-14.5); RED BLOOD CELL CT 3.94 /CUMM (4.70-6.10); WHITE BLOOD CELL COUNT 10.1 /CUMM (4.8-10.8)
--- NOTE | 2017-06-02 10:37 | PN- Infect Dx ---
Subjective Subjective: Afebrile without complaints. He has no further urinary symptoms. Objective Last 24 Hrs of Vital Signs/I&O Vital Signs Date Time Temp Pulse Resp B/P B/P Pulse O2 O2 Flow FiO2 Mean Ox Delivery Rate 06/02 0620 98.5 88 18 122/74 97 Room Air 06/01 2216 98.1 92 19 118/80 98 Room Air 06/01 1354 97.6 100 18 116/80 94 Room Air Intake & Output 06/02 1600 06/02 0800 06/02 0000 Intake Total 200 200 Output Total 350 650 Balance -150 -450 Intake, Oral 200 200 Output, Urine 350 650 Physical Exam Other Physical Findings: He appears comfortable in no acute distress Lungs bibasilar rhonchi Heart regular rhythm with no murmur Back no CVA tenderness Results Last 24 Hours of Lab Results: Laboratory Tests 06/02 0745 Chemistry Sodium (137 - 145 mmol/L) 140 Potassium (3.5 - 5.1 mmol/L) 4.4 Chloride (98 - 107 mmol/L) 102 Carbon Dioxide (22 - 30 mmol/L) 26 Anion Gap (5 - 16) 12 BUN (9 - 20 mg/dL) 15 Creatinine (0.7 - 1.2 mg/dL) 0.6 L Estimated GFR (>60 ml/min) > 60 BUN/Creatinine Ratio (7 - 25 %) 25.0 Hematology CBC w Diff Pending WBC Pending RBC Pending Hgb Pending Hct Pending MCV Pending MCH Pending RDW Pending Plt Count Pending MPV Pending PUBS MCHC Pending Last 24 Hours of Fernando Results: Blood cultures 2 May 31 negative Urine culture May 31 approximately 10,000 colonies of gram-negative rods Recent Imaging Studies: CT of the abdomen and pelvis June 01 is negative for hydronephrosis or nephrolithiasis, but does reveal a distended bladder and trabeculations of the bladder wall with bladder wall diverticula, suggestive of outlet obstruction. Assessment/Plan Impression: Stable with temperatures and white blood cell count remaining normal and with no further urinary symptoms on Ceftazidime Day 2 of treatment for a Pseudomonas UTI that is resistant to Ciprofloxacin. His CT scan does reveal a distended bladder with mild irregular wall thickening, which likely explains his increased susceptibility to recurrent urinary tract infections. He has seen his urologist recently and will need to follow-up after discharge. His urine culture is positive for approximately 10,000 colonies of gram-negative rods, suggesting a partial response to Ciprofloxacin, which he was on several days prior to admission. Suggestion: 1. Bladder scan to assess degree of urinary retention 2. Urology follow-up (can be as an outpatient with his urologist if he remains stable) 3. Continue Ceftazidime to complete a 7 day course of treatment
[2017-06-02 14:40] VITALS: BP 120/60
[2017-06-02 22:35] VITALS: BP 130/70
[2017-06-03 06:41] VITALS: BP 106/62
--- NOTE | 2017-06-03 08:49 | PN- Housestaff ---
[place] HOLLINGSWORTH,Teresa 06/03/17 0848: Subjective Follow-up For: UTI due to Pseudomonas infection. Subjective: No overnight events. Patient remained afebrile overnight. Seen and examined this morning. He denied any chest pain, short of breath, nausea, vomiting, abdominal pain, chills, fever and lightheadedness. He reported that his burning micturition and frequency has improved and he is close to his baseline.however the pt c/o of increasing cough , difficulty swallowing his pills, her episodes of choking. His expresses concerns about aspiration pneumonia. Chest x- ray was ordered, swallow evaluation and the patient was kept nothing by mouth Review of Systems Constitutional: Denies: no symptoms. Cardiovascular: Denies: no symptoms. Respiratory: Reports: cough, sputum production. Gastrointestinal: Denies: no symptoms. Genitourinary: Denies: no symptoms. Skin: Denies: no symptoms. Objective Last 24 Hrs of Vital Signs/I&O Vital Signs Date Time Temp Pulse Resp B/P B/P Pulse O2 O2 Flow FiO2 Mean Ox Delivery Rate 06/03 0641 97.9 74 20 106/62 96 Room Air 06/02 2235 98.8 90 20 130/70 97 Room Air 06/02 1440 98.0 75 20 120/60 96 Intake & Output 06/03 1600 06/03 0800 06/03 0000 Intake Total 300 200 Output Total 300 200 Balance 0 0 Intake, Oral 300 200 Output, Urine 300 200 Physical Exam General Appearance: Alert, Oriented X3, Cooperative, No Acute Distress HEENT: Atraumatic, PERRLA, EOMI, Mucous Membr. 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 We will admit the patient on general medicine floor to give him IV antibiotics for UTI. UTI: -Patient was admitted last time in February 2017 when he was growing Pseudomonas in urine and was treated with IV ceftriaxone and was discharged on ciprofloxacin. -Patient again came in with UTI and he is growing Pseudomonas and urine and he took outpatient antibiotic treatment. -Continue IV ceftaz for a total of 7 days -We'll follow the urine and blood cultures. -Currently the patient states that he refuses to get PICC line and would prefer to stay until Sunday for his antibiotics #Devics disease: -Patient has a variant of demyelinating disorder and he is taking immunosuppressive medication including mycophenolate we will continue it. -We will continue droxidopa. Cough / chocking Follow up on a chest x-ray Problems follow event MBS tomorrow Nothing by mouth for now pending above #Chronically low blood pressure: -We will continue his midodrine. -We will watch for his blood pressure. DVT prophylaxis: Mechanical and Lovenox CODE STATUS: Full code Problem List: 1. 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 Patient reports urinary frequency and some discomfort. He denies systemic symptoms and does not appear septic. AFVSS. WBC 10. Started on Ceftazidime overnight. CT abdomen shows thickened bladder with outflow obstruction. 1. UTI secondary to resistent Pseudomonas 2. DEVIC 3. Chronic aspiration s/p PEG Plan - Continue on general medicine - ID consult - Will possibly pursue PICC and 7 days of Ceftazidime as an outpatient - Continue home medications including Finasteride - No Flomax as it may cause hypotension - DVT PPx - Outpatient urology follow up
--- NOTE | 2017-06-03 11:09 | RADIOLOGY REPORT ---
EXAMINATION: XR PORTABLE CHEST CLINICAL INFORMATION: Cough. Question aspiration pneumonia. COMPARISON: Several priors including most recent of 05/25/17. CT scan of 12/27/15. TECHNIQUE: Portable frontal view of the chest was obtained. FINDINGS: Increased basilar interstitial markings are chronic and unchanged. There is mild focal opacity peripherally at the left base consistent with atelectasis. Developing pneumonia is possible. The pleural spaces are clear. Heart size is normal. Calcific atherosclerotic changes are present in the aortic arch. IMPRESSION: 1. Chronic basilar interstitial prominence. 2. Minimal peripheral opacity left base consistent with atelectasis and/or developing pneumonia.
--- NOTE | 2017-06-03 12:35 | PN- Infect Dx ---
Subjective Subjective: No fever; feeling well; awaits swallow eval Review of Systems Comments: 12 points reviewed per HPI, otherwise neg. Objective Last 24 Hrs of Vital Signs/I&O Vital Signs Date Time Temp Pulse Resp B/P B/P Pulse O2 O2 Flow FiO2 Mean Ox Delivery Rate 06/03 0641 97.9 74 20 106/62 96 Room Air 06/02 2235 98.8 90 20 130/70 97 Room Air 06/02 1440 98.0 75 20 120/60 96 Intake & Output 06/03 1600 06/03 0800 06/03 0000 Intake Total 300 200 Output Total 250 300 200 Balance -250 0 0 Intake, Oral 300 200 Output, Urine 250 300 200 Physical Exam Other Physical Findings: Afebrile. He is awake and alert in no acute distress. Skin reveals no rash. HEENT negative. Neck is supple with no adenopathy. Lungs bibasilar rhonchi. Heart regular rhythm with no murmur. Abdomen is soft, nontender with positive bowel sounds; PEG in place with no inflammation at the site. Back no CVA tenderness. Extremities no cyanosis, clubbing or edema. Neuro occasional myoclonic jerks; some imbalance with no obvious focality. Results Last 24 Hours of Lab Results: reviewed Last 24 Hours of Fernando Results: Procedure Result > URINE CULTURE Preliminary 06/03/17-1133 Approx. 10,000 colonies per ml OF: GRAM NEGATIVE RODS Identification and sensitivities STILL to follow Recent Imaging Studies: reviewed Assessment/Plan Impression: 81-year-old man with a history of Devic's disease, maintained on CellCept, paroxysmal atrial fibrillation, orthostatic hypotension, squamous cell cancer of the neck, status post surgery and radiation, and recurrent urinary tract infections, admitted on May 31 with several days of dysuria and increased urinary frequency. Stable with temperatures and white blood cell count remaining normal and with no further urinary symptoms on Ceftazidime Day 3 of treatment for a Pseudomonas UTI that is resistant to Ciprofloxacin. His CT scan does reveal a distended bladder with mild irregular wall thickening, which likely explains his increased susceptibility to recurrent urinary tract infections. He has seen his urologist recently and will need to follow-up after discharge. His urine culture is positive for approximately 10,000 colonies of gram-negative rods, suggesting a partial response to Ciprofloxacin, which he was on several days prior to admission. Suggestion: 1. Bladder scan to assess degree of urinary retention 2. Urology follow-up (can be as an outpatient with his urologist if he remains stable) 3. Continue Ceftazidime D #07/25. 4. CLEM, CHARI in am.
[2017-06-03 15:44] VITALS: BP 98/58
[2017-06-03 22:43] VITALS: BP 130/70
[2017-06-04 06:30] VITALS: BP 136/70
--- NOTE | 2017-06-04 07:26 | PN- Housestaff ---
[place] 06/04/17 0726: Subjective Follow-up For: UTI due to Pseudomonas infection. Subjective: No overnight events. Patient remained afebrile. Skin examined this morning. Patient denied any chest pain, short of breath, nausea, vomiting, chills, fever, abdominal pain and dysuria. Review of Systems Constitutional: Reports: no symptoms. EENTM: Reports: no symptoms. Cardiovascular: Reports: no symptoms. Respiratory: Reports: no symptoms. Gastrointestinal: Reports: no symptoms. Genitourinary: Reports: no symptoms. Musculoskeletal: Reports: no symptoms. Neurological/Psychological: Reports: no symptoms. Objective Last 24 Hrs of Vital Signs/I&O Vital Signs Date Time Temp Pulse Resp B/P B/P Pulse O2 O2 Flow FiO2 Mean Ox Delivery Rate 06/04 0630 98.1 69 18 136/70 98 Room Air 06/03 2243 97.7 76 20 130/70 98 Room Air 06/03 1544 97.4 76 20 98/58 96 Intake & Output 06/04 1600 06/04 0800 06/04 0000 Intake Total 200 480 Output Total 750 Balance -550 480 Intake, Oral 200 480 Output, Urine 750 Physical Exam General Appearance: Alert, Oriented X3, Cooperative, No Acute Distress Skin Temp/Moisture Exam: Warm/Dry HEENT: Atraumatic, PERRLA Neck: Supple Cardiovascular: Normal S1, Normal S2 Lungs: Clear to Auscultation Abdomen: Soft, No Tenderness Neurological: Normal Speech, Strength at 5/5 X4 Ext, Normal Tone, Sensation Intact Extremities: No Edema Assessment/Plan Assessment: 81 YO F with PMH of Devic's disease, aspiration pneumonia, orthostatic hypotension, recurrent UTI, 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 We will admit the patient on general medicine floor to give him IV antibiotics for UTI. UTI: -Patient was admitted last time in February 2017 when he was growing Pseudomonas in urine and was treated with IV ceftriaxone and was discharged on ciprofloxacin. -Patient again came in with UTI and he is growing Pseudomonas and urine and he took outpatient antibiotic treatment. -Continue IV ceftaz for a total of 7 days -We'll follow the urine and blood cultures. -Currently the patient states that he refuses to get PICC line and would prefer to stay until Sunday for his antibiotics Devics disease: -Patient has a variant of demyelinating disorder and he is taking immunosuppressive medication including mycophenolate we will continue it. -We will continue droxidopa. Cough / chocking Follow up on a chest x-ray -There was a suspicion of aspiration pneumonia but patient is afebrile and WBC count is within normal limits, patient could have chronic peribronchial inflammation. Patient had multiple modified barium swallow test in the past and modification in the diet so no need for magnified barium swallow this time. And patient doesn't want to either. Chronically low blood pressure: -We will continue his midodrine. -We will watch for his blood pressure. DVT prophylaxis: Mechanical and Lovenox CODE STATUS: Full code Problem List: 1. 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 Patient reports urinary frequency and some discomfort. He denies systemic symptoms and does not appear septic. AFVSS. CT abdomen shows thickened bladder with outflow obstruction. 1. UTI secondary to resistent Pseudomonas 2. DEVIC 3. Chronic aspiration s/p PEG Plan - Continue on general medicine - ID consult - Will go home tomorrow with Ceftazidime to complete 7 day course through peripheral IV - Continue home medications including Finasteride - No Flomax as it may cause hypotension - DVT PPx - Outpatient urology follow up - Spoke extensively with patient and speech therapy, patient has a history of poor MBS, but swallows well and is showing no signs of aspiration at this time. The patient will adhere to speech therapy's diet recommendations on discharge and follows up as outpatient.
[2017-06-04 09:17] LABS: ABSOLUTE BASOPHIL COUNT 0 /CUMM (0.0-0.2); ABSOLUTE EOSINOPHIL COUNT 0.5 /CUMM (0.0-0.7); ABSOLUTE GRANULOCYTE CT 6.1 /CUMM (1.4-6.5); ABSOLUTE LYMPH COUNT 0.9 /CUMM (1.2-3.4); ABSOLUTE MONOCYTE COUNT 0.9 /CUMM (0.10-0.60); BASOPHIL % 0.4 % (0.0-2.0); GRANULOCYTE % 72.6 % (42.2-75.2); HEMATOCRIT 36.5 % (42-52); MEAN CORPUSCULAR HGB 30.3 PG (27.0-31.0); MEAN CORPUSCULAR HGB CONC 32.8 G/DL (33.0-37.0); MEAN CORPUSCULAR VOLUME 92.3 FL (80.0-94.0); MEAN PLATELET VOLUME 8.1 FL (7.4-10.4); PLATELET COUNT 434 /CUMM (130-400); RBC DISTRIBUTION WIDTH 13.9 % (11.5-14.5); RED BLOOD CELL CT 3.96 /CUMM (4.70-6.10); WHITE BLOOD CELL COUNT 8.5 /CUMM (4.8-10.8)
[2017-06-04 14:11] VITALS: BP 110/60
--- NOTE | 2017-06-04 16:21 | PN- Infect Dx ---
Subjective Subjective: Feeling better; no fever or chills. Review of Systems Comments: 12 points reviewed as noted, otherwise negative. Objective Last 24 Hrs of Vital Signs/I&O Vital Signs Date Time Temp Pulse Resp B/P B/P Pulse O2 O2 Flow FiO2 Mean Ox Delivery Rate 06/04 1411 97.3 81 20 110/60 95 Room Air 06/04 0800 98 Room Air 06/04 0630 98.1 69 18 136/70 98 Room Air 06/03 2243 97.7 76 20 130/70 98 Room Air Intake & Output 06/04 1600 06/04 0800 06/04 0000 Intake Total 480 200 480 Output Total 400 750 Balance 80 -550 480 Intake, Oral 480 200 480 Number 1 Bowel Movements Output, Urine 400 750 Physical Exam Other Physical Findings: Afebrile. He is awake and alert in no acute distress. Skin reveals no rash. HEENT negative. Neck is supple with no adenopathy. Lungs bibasilar rhonchi. Heart regular rhythm with no murmur. Abdomen is soft, nontender with positive bowel sounds; PEG in place with no inflammation at the site. Back no CVA tenderness. Extremities no cyanosis, clubbing or edema. Neuro awake and alert x 3 Results Last 24 Hours of Lab Results: Laboratory Tests 06/04 0808 Chemistry Sodium (137 - 145 mmol/L) 141 Potassium (3.5 - 5.1 mmol/L) 4.5 Chloride (98 - 107 mmol/L) 100 Carbon Dioxide (22 - 30 mmol/L) 30 Anion Gap (5 - 16) 12 Hematology CBC w Diff NO MAN DIFF REQ WBC (4.8 - 10.8 /CUMM) 8.5 RBC (4.70 - 6.10 /CUMM) 3.96 L Hgb (14.0 - 18.0 G/DL) 12.0 L Hct (42 - 52 %) 36.5 L MCV (80.0 - 94.0 FL) 92.3 MCH (27.0 - 31.0 PG) 30.3 RDW (11.5 - 14.5 %) 13.9 Plt Count (130 - 400 /CUMM) 434 H MPV (7.4 - 10.4 FL) 8.1 Gran % (42.2 - 75.2 %) 72.6 Lymphocytes % (20.5 - 51.1 %) 10.5 L Monocytes % (1.7 - 9.3 %) 10.5 H Eosinophils % (0 - 5 %) 6.0 H Basophils % (0.0 - 2.0 %) 0.4 Absolute Granulocytes (1.4 - 6.5 /CUMM) 6.1 Absolute Lymphocytes (1.2 - 3.4 /CUMM) 0.9 L Absolute Monocytes (0.10 - 0.60 /CUMM) 0.9 H Absolute Eosinophils (0.0 - 0.7 /CUMM) 0.5 Absolute Basophils (0.0 - 0.2 /CUMM) 0 PUBS MCHC (33.0 - 37.0 G/DL) 32.8 L Last 24 Hours of Fernando Results: reviewed Recent Imaging Studies: reviewed Assessment/Plan Impression: 81-year-old man with a history of Devic's disease, maintained on CellCept, paroxysmal atrial fibrillation, orthostatic hypotension, squamous cell cancer of the neck, status post surgery and radiation, and recurrent urinary tract infections, admitted on May 31 with several days of dysuria and increased urinary frequency; currently clinically much improved Stable with temperatures and white blood cell count remaining normal and with no further urinary symptoms on Ceftazidime Day 4 of treatment for a Pseudomonas UTI that is resistant to Ciprofloxacin. His CT scan A/P revealed a distended bladder with mild irregular wall thickening , which likely explains his increased susceptibility to recurrent urinary tract infections. He has seen his urologist recently and will need to follow-up after discharge. His urine culture is positive for approximately 10,000 colonies of gram-negative rods, suggesting a partial response to Ciprofloxacin, which he was on several days prior to admission. Suggestion: 1. F/u Urology follow-up (can be as an outpatient with his urologist if he remains stable) 2. Continue Ceftazidime D #4/. 3. Call if fever or urinary retention (PVR >350cc).
[2017-06-04 22:34] VITALS: BP 140/80
[2017-06-05 06:07] VITALS: BP 138/86
--- NOTE | 2017-06-05 07:37 | PN- Housestaff ---
Subjective Follow-up For: UTI due to Pseudomonas infection Subjective: No overnight events. Patient remained afebrile overnight. Seen and examined this morning. Patient denied any chest pain, short of breath, nausea, vomiting, chills, fever, abdominal pain dysuria. Patient will be discharged today and he will complete a total 7 days antibiotic treatment at home. He'll get 3 more days of antibiotics at home. Review of Systems Constitutional: Reports: no symptoms. EENTM: Reports: no symptoms. Cardiovascular: Reports: no symptoms. Respiratory: Reports: no symptoms. Gastrointestinal: Reports: no symptoms. Genitourinary: Reports: no symptoms. Musculoskeletal: Reports: no symptoms. Neurological/Psychological: Reports: no symptoms. Objective Last 24 Hrs of Vital Signs/I&O Vital Signs Date Time Temp Pulse Resp B/P B/P Pulse O2 O2 Flow FiO2 Mean Ox Delivery Rate 06/05 0607 97.6 74 20 138/86 96 Room Air 06/04 2234 97.8 86 20 140/80 96 06/04 1411 97.3 81 20 110/60 95 Room Air Intake & Output 06/05 1600 06/05 0800 06/05 0000 Intake Total 120 800 Output Total 400 Balance -280 800 Intake, Oral 120 800 Output, Urine 400 Physical Exam General Appearance: Alert, Oriented X3, Cooperative, No Acute Distress Skin Temp/Moisture Exam: Warm/Dry HEENT: Atraumatic, PERRLA, EOMI Neck: Supple Cardiovascular: Normal S1, Normal S2, No Murmurs Lungs: Clear to Auscultation Abdomen: Soft, No Tenderness Neurological: Normal Speech, Strength at 5/5 X4 Ext, Normal Tone, Sensation Intact Extremities: No Edema Assessment/Plan Assessment: 81 YO F with PMH of Devic's disease, aspiration pneumonia, orthostatic hypotension, recurrent UTI, 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 We will admit the patient on general medicine floor to give him IV antibiotics for UTI. UTI: -Patient was admitted last time in February 2017 when he was growing Pseudomonas in urine and was treated with IV ceftriaxone and was discharged on ciprofloxacin. -Patient again came in with UTI and he is growing Pseudomonas and urine and he took outpatient antibiotic treatment. -Continue IV ceftaz for a total of 7 days -We'll follow the urine and blood cultures. -Patient with complete total of 7 days of IV antibiotics at home he needs to get 3 more days of IV antibiotics through peripheral line. 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 -We will continue droxidopa. Cough / chocking Follow up on a chest x-ray -There was a suspicion of aspiration pneumonia but patient is afebrile and WBC count is within normal limits, patient could have chronic peribronchial inflammation. Patient had multiple modified barium swallow test in the past and modification in the diet so no need for magnified barium swallow this time. And patient doesn't want to either. Chronically low blood pressure: -We will continue his midodrine. -We will watch for his blood pressure. DVT prophylaxis: Mechanical and Lovenox CODE STATUS: Full code Problem List: 1. UTI (urinary tract infection) Pain Ratin Pain Location: NONE Pain Goal: Remain pain free Pain Plan: TYLENOL FOR PAIN Tomorrow's Labs & Rationales: NONE
[2017-06-05] MEDS ORDERED: CEFTAZIDIME1 G2 IV (09:42)
--- NOTE | 2017-06-05 14:39 | Discharge Summary ---
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 Bell for management of drug resistant UTI. ED course: Vitals: Temperature 97.4, pulse 73, respiratory rate 15, blood pressure 63/33, 72/50, 112/68, oxygen saturation 96% room air Labs: Duragesic count 8.6, hemoglobin 12.8, hematocrit 38.7, platelet count 435, sodium 139, potassium 4.5, BUN 17, creatinine 1.0, BUN/creatinine ratio 17.0, glucose 112, lactic acid 1.3, calcium 8.5, AST 21, ALT 33, albumin 3.5 UTI secondary to ciprofloxacin resistant Pseudomonas: She was growing resistant Pseudomonas in urine. Patient failed outpatient antibiotic therapy as Pseudomonas was resistant to ciprofloxacin. Patient was given ceftazidime IV for 7 days. Patient completed 4 days of IV antibiotics during his hospital stay. Patient refused to get PICC line for outpatient IV antibiotic therapy. Over the discharge patient was instructed to get 3 more days of IV antibiotics at home to peripheral IV line to complete total 7 days. Patient was instructed to follow urology as an outpatient for his urinary retention. Patient was also instructed to followtherapist as an outpatient. 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 Cough/chocking: Considering patient's complaint of cough and choking, chest x-ray was done to rule out aspiration although patient remained afebrile and also normal WBC count. Patient had a history of difficulty in swallowing and he got multiple modified barium swallow test as outpatient. And he was following speech therapist as outpatient.Therapist already modified his diet and he is on regular diet with nectar thick liquid. Chronically low blood pressure: We continue his midodrine and monitored his blood pressure during the hospital stay. DVT prophylaxis: Mechanical and Lovenox CODE STATUS: Full code Allergies: Coded Allergies: No Known Allergies (05/31/17) Pertinent Lab Results: Abdominal/pelvic CT scan on 06/01/2017: IMPRESSION: No hydronephrosis or nephrolithiasis. Left renal cyst. Trabeculations of the bladder wall with bladder wall diverticula, suggestive of outlet obstruction. Cholelithiasis. Consolidation at both lung bases. This appearance is nonspecific. Consider multifocal pneumonia and aspiration. Atelectasis is possible. Chest x-ray on 06/03/2017: IMPRESSION: 1. Chronic basilar interstitial prominence. 2. Minimal peripheral opacity left base consistent with atelectasis and/or developing pneumonia. Disposition Summary Disposition Principal Diagnosis: UTI secondary to ciprofloxacin resistant Pseudomonas. Additional Diagnosis: Devic's disease Chronic aspiration status post PEG tube placement. Discharge Disposition: home health services Discharge Instructions General Discharge Information Code Status: Full Code Patient's Diet: Regular diet with nectar thick liquid Patient's Activity: Self-limited Follow-Up Instructions/Appts: Follow-up with your primary care physician in one week. Follow-up with urologist in 1 week. Follow-up with speech therapist in 1 week. Medications at Discharge Discharge Medications: Continue taking these medications: Baclofen (Baclofen) 10 MG TABLET 1 Tablet ORAL TWICE DAILY Qty = 60 Comments: Last Taken: 06/05/17 Time: 9AM Aspirin (Aspirin*) 81 MG TAB.CHEW 1 Tablet ORAL DAILY Comments: Last Taken: 06/05/16 Time: 9AM Mycophenolate Mofetil (Cellcept) 200 MG/ML SUSP.RECON 5 Milliliters PEG TUBE TWICE DAILY Comments: Last Taken: 06/05/17 Time: 9AM Droxidopa (Northera) 100 MG CAPSULE 3 Capsule ORAL THREE TIMES DAILY Qty = 450 Comments: Last Taken:06/05/17 Time: 9AM Saccharomyces Boulardii (Florastor) 250 MG CAPSULE 1 Capsule ORAL DAILY Comments: NOT GIVEN IN HOSPITAL Cyanocobalamin (Vitamin B-12) 1,000 MCG TABLET 1 Tablet ORAL DAILY Comments: NOT GIVEN IN WHILE IN HOSPITAL Cholecalciferol (Vitamin D3) (Vitamin D) (Unknown Strength) TABLET 1 Tablet ORAL DAILY Comments: NOT GIVEN IN HOSPITAL Biotin (Biotin) (Unknown Strength) CAPSULE 1 Tablet ORAL DAILY Comments: NOT GIVEN IN HOSPITAL Finasteride (Finasteride) 5 MG TABLET 1 Tablet ORAL DAILY Qty = 30 Comments: Last Taken: 06/05/17 Time: 9AM Fludrocortisone Acetate (Fludrocortisone Acetate) 0.1 MG TABLET 1 Tablet ORAL DAILY Qty = 90 Comments: Last Taken: 06/05/17 Time: 9AM Start taking the following new medications: Ceftazidime (Ceftazidime) 1 GRAM VIAL 1,000 Milligram INTRAVEN IV EVERY 8 HOURS Qty = 10 No Refills Instructions: 1000MG IV X Q8 Comments: Last Taken: 06/05/17 Time: 8:30AM Copies To: Ray HOLLINGSWORTH,Karl Tate
== END 2017-06-05 11:20 | disposition home health service (06) | DRG 690 ==
LOC: ERH 16:04 → 2NA 17:08 → ERHI 17:08 → ENRESERV 17:37 → ENTRNSPT 18:02 → EDTRNSPTSTS 18:07 → EDTRNSPT 18:07 → 2NA 18:22 → CMPTRNSPT 18:52 → 2NA 06-01 08:54 → ENPENDDIS 06-05 10:40 → ENTRNSPT 06-05 11:04 → EDTRNSPTSTS 06-05 11:13 → EDTRNSPT 06-05 11:13 → 2NA 06-05 11:20 → CMPTRNSPT 06-05 11:38
PROVIDERS: Physician Assistant Medical; Student in an Organized Health Care Education/Training Program
DX: N39.0 Urinary tract infection, site not specified (principal); I95.89 Other hypotension; I48.0 Paroxysmal atrial fibrillation; G36.0 Neuromyelitis optica [Devic]; R13.12 Dysphagia, oropharyngeal phase; B96.5 Pseudomonas (aeruginosa) (mallei) (pseudomallei) as the cause of diseases classified elsewhere; Z93.1 Gastrostomy status; I25.10 Atherosclerotic heart disease of native coronary artery without angina pectoris; Z16.23 Resistance to quinolones and fluoroquinolones; Z85.89 Personal history of malignant neoplasm of other organs and systems; Z95.5 Presence of coronary angioplasty implant and graft; Z92.3 Personal history of irradiation; R33.9 Retention of urine, unspecified; Z87.891 Personal history of nicotine dependence
CPT/HCPCS: 2NASP; 36415; 71045; 74176; 81001; 82436; 87040; 87086; 93005; 93010; 97110-GO; 97116-GO; 97161-GP; J0131; J0713; J1650; J3490; J7517